=== PATIENT | male | born 1975 | race Caucasian/White ===

== ENCOUNTER 2018-03-09 15:27 | Emergency (ER) | payer SELFPAY ==
[~2018-03-09] VITALS: Ht 170.2 cm; Wt 87.1 kg
[2018-03-09 15:35] VITALS: Ht 170.2 cm; Wt 87.1 kg
[2018-03-09 18:22] VITALS: BP 193/126
== END 2018-03-09 18:22 | disposition home or self-care (01) ==
LOC: ED 15:27
DX: J32.9 Chronic sinusitis, unspecified (principal)
CPT/HCPCS: J1885

== ENCOUNTER 2019-02-06 19:16 | Emergency (ER) | payer MEDICAID ==
[~2019-02-06] VITALS: Ht 170.2 cm; Wt 92.1 kg
[2019-02-06 19:45] VITALS: Ht 170.2 cm; Wt 92.1 kg
[2019-02-06 23:25] VITALS: BP 190/89
== END 2019-02-06 23:25 | disposition home or self-care (01) ==
LOC: ED 19:16
DX: M25.511 Pain in right shoulder (principal); M25.551 Pain in right hip; I10 Essential (primary) hypertension; W18.30XA Fall on same level, unspecified, initial encounter; Y93.89 Activity, other specified; Y92.89 Other specified places as the place of occurrence of the external cause; Y99.8 Other external cause status
CPT/HCPCS: J1885